=== PATIENT | female | born 1960 | race African-American/Black ===

== ENCOUNTER 2017-12-29 15:43 | Inpatient (IN) | payer OTHER ==
[2017-12-29] VITALS (8 sets, daily range): BP systolic 128–161; BP diastolic 73–100; PULSE 91–129; RESP 18–40; TEMP 97.7–100.2; O2SAT 91–98
[~2017-12-29] VITALS: Ht 160 cm; Wt 61.9 kg
[~2017-12-29 15:43] MED LIST: BLOOKIT5; CARV3.125 PO; ECOT81TA2 PO; GEOD80CA PO; LISI5 PO; REME45TA PO; VIST50CA PO
[2017-12-29] MEDS ORDERED: SODIUM CHLOR 0.9% 1000 ML INJ 1,000 ML IV SCH ×2 (16:33→18:44)
--- NOTE | 2017-12-29 16:39 | PD ---
HPI Chief Complaint: Respiratory Symptoms Time Seen by Provider: 16:24 Travel History International Travel<30 days: No Contact w/Intl Traveler<30days: No Traveled to known affect area: No History of Present Illness HPI 57-year-old female with history of asthma, schizophrenia, presents for evaluation of dyspnea and cough. Symptoms started 5 days ago. She reports dyspnea, pain underneath her breasts bilaterally which is worse when breathing and coughing. It is a sharp pain. The cough is dry. Her dyspnea is unrelieved with her asthma bronchodilator inhaler medication. She believes that she may have had a fever yesterday, she reports that her skin felt warm. She did not check her temperature. Denies abdominal pain, nausea or vomiting, diarrhea or constipation, recent travel, recent surgery. her primary care physician is Dr. Serrano. No other complaints. PFSH Past Medical History Arthritis: Yes Asthma: Yes Autoimmune Disease: No Bipolar Disorder: Yes Anxiety: Yes Depression: Yes Heart Rhythm Problems: No Cancer: No Cardiovascular Problems: No High Cholesterol: No Chemotherapy: No Chest Pain: Yes Congestive Heart Failure: No COPD: No Cerebrovascular Accident: Yes (FIVE YEARS AGO ) Diabetes: Yes Diminished Hearing: No Endocrine: No Gastrointestinal Disorders: Yes GERD: No Glaucoma: No Genitourinary: Yes (CYST RIGHT KIDNEY 2005) Headaches: Yes Hepatitis: Yes (HEP C) Hiatal Hernia: Yes Hypertension: No Immune Disorder: No Kidney Stones: No Musculoskeletal: Yes Neurologic: Yes Psychiatric: Yes Reproductive: No Respiratory: Yes Immunizations Current: Yes Migraines: No Myocardial Infarction: No Radiation Therapy: No Renal Failure: No Schizophrenia: Yes Seizures: No Sickle Cell Disease: Yes (SICKLE CELL TRAIT) Sleep Apnea: No Thyroid Disease: Yes (HAS A CYST ON GLAND IN NECK PT STATES IS THYROID 2005) Ulcer: Yes : 3 Para: 3 Tubal Ligation: Yes (1990) Past Surgical History Abdominal Surgery: Yes (ABDOMINAL HERNIA REPAIR 1993 X2) Appendectomy: No Cardiac Surgery: No Cholecystectomy: No Ear Surgery: No Endocrine Surgery: No Eye Surgery: No Genitourinary Surgery: No Gynecologic Surgery: Yes (TUBAL LIGATION 1990) Hysterectomy: Yes Oral Surgery: No Thoracic Surgery: No Other Surgery: Yes Social History Alcohol Use: No Tobacco Use: Yes (1 PPD) Substance Use: Yes (NEELIMAUNA) Allergies-Medications (Allergen,Severity, Reaction): Coded Allergies: thiabendazole (Verified Allergy, Severe, HIVES, 12/29/17) Reported Meds & Prescriptions Reported Meds & Active Scripts Active Active Prescriptions or Reported Medications Unobtainable Review of Systems Except as stated in HPI: all other systems reviewed are Neg Physical Exam Narrative GENERAL: Well-developed well-nourished female no acute distress. She is noted to be tachycardic with an oxygen saturation of 91% in triage. SKIN: Warm and dry. HEAD: Atraumatic. Normocephalic. EYES: Pupils equal and round. No scleral icterus. No injection or drainage. ENT: No nasal bleeding or discharge. Mucous membranes pink and moist. NECK: Trachea midline. No JVD. CARDIOVASCULAR: Regular rate and rhythm. No murmur appreciated. RESPIRATORY: No accessory muscle use. Diminished breath sounds bilaterally. GASTROINTESTINAL: Abdomen soft, non-tender, nondistended. Hepatic and splenic margins not palpable. MUSCULOSKELETAL: No obvious deformities. No edema. NEUROLOGICAL: Awake and alert. No obvious cranial nerve deficits. Motor grossly within normal limits. Normal speech. Data Data Last Documented VS Vital Signs Date Time Temp Pulse Resp B/P (MAP) Pulse Ox O2 Delivery O2 Flow Rate FiO2 12/29/17 16:43 40 96 Nasal Cannula 2.00 12/29/17 16:43 100.2 125 149/85 (106) Orders Orders Complete Blood Count With Diff (12/29/17 16:09) Basic Metabolic Panel (Bmp) (12/29/17 16:09) B-Type Natriuretic Peptide (12/29/17 16:09) Act Partial Throm Time (Ptt) (12/29/17 16:09) Prothrombin Time / Inr (Pt) (12/29/17 16:09) Magnesium (Mg) (12/29/17 16:09) Ckmb (Isoenzyme) Profile (12/29/17 16:09) Troponin I (12/29/17 16:09) Electrocardiogram (12/29/17 16:09) Chest, Pa & Lat (12/29/17 16:09) Albuterol-Ipratropium Neb (Duoneb Neb) (12/29/17 16:45) Methylprednisolone So Succ Inj (Solumedr (12/29/17 16:45) Sodium Chlor 0.9% 1000 Ml Inj (Ns 1000 M (12/29/17 16:33) Lactic Acid Sepsis Protocol (12/29/17 16:33) Influenzae A/B Antigen (12/29/17 16:33) Blood Culture (12/29/17 16:33) Acetaminophen (Tylenol) (12/29/17 17:15) D-Dimer (12/29/17 16:43) Ceftriaxone Inj (Rocephin Inj) (12/29/17 18:15) Azithromycin Inj (Zithromax Inj) (12/29/17 18:15) CKMB (12/29/17 16:43) CKMB% (12/29/17 16:43) Potassium Chloride (Kcl) (12/29/17 18:15) Sodium Chlor 0.9% 1000 Ml Inj (Ns 1000 M (12/29/17 18:44) Labs Laboratory Tests Test 12/29/17 16:43 12/29/17 16:45 White Blood Count 20.6 TH/MM3 Red Blood Count 3.94 MIL/MM3 Hemoglobin 11.4 GM/DL Hematocrit 33.3 % Mean Corpuscular Volume 84.5 FL Mean Corpuscular Hemoglobin 28.8 PG Mean Corpuscular Hemoglobin Concent 34.1 % Red Cell Distribution Width 17.9 % Platelet Count 245 TH/MM3 Mean Platelet Volume 8.2 FL Neutrophils (%) (Auto) 86.3 % Lymphocytes (%) (Auto) 6.0 % Monocytes (%) (Auto) 7.4 % Eosinophils (%) (Auto) 0.0 % Basophils (%) (Auto) 0.3 % Neutrophils # (Auto) 17.7 TH/MM3 Lymphocytes # (Auto) 1.2 TH/MM3 Monocytes # (Auto) 1.5 TH/MM3 Eosinophils # (Auto) 0.0 TH/MM3 Basophils # (Auto) 0.1 TH/MM3 CBC Comment DIFF FINAL Differential Comment Prothrombin Time 12.7 SEC Prothromb Time International Ratio 1.3 RATIO Activated Partial Thromboplast Time 28.9 SEC D-Dimer Quantitative (PE/DVT) 2.82 MG/L FEU Blood Urea Nitrogen 9 MG/DL Creatinine 0.74 MG/DL Random Glucose 114 MG/DL Calcium Level 8.6 MG/DL Magnesium Level 2.3 MG/DL Sodium Level 126 MEQ/L Potassium Level 3.1 MEQ/L Chloride Level 91 MEQ/L Carbon Dioxide Level 22.5 MEQ/L Anion Gap 13 MEQ/L Estimat Glomerular Filtration Rate 98 ML/MIN Total Creatine Kinase 455 U/L Creatine Kinase MB 2.9 NG/ML Creatine Kinase MB % 0.6 % Troponin I LESS THAN 0.02 NG/ML B-Type Natriuretic Peptide 57 PG/ML Lactic Acid Level 2.5 mmol/L MDM Medical Decision Making Medical Screen Exam Complete: Yes Emergency Medical Condition: Yes Medical Record Reviewed: Yes Differential Diagnosis Asthma exacerbation, pneumonia, spontaneous pneumothorax, pulmonary embolism, pleural effusion, CHF Narrative Course The patient was placed on ECG monitoring pulse oximetry. A 12-lead EKG was obtained. Lab work, chest x-ray have been ordered. The patient will be given IV fluids, duo nebs, Solu-Medrol. Initial vital signs revealed a heart rate of 129, pulse oximetry 91 as well as a normal temperature. Her temperature was rechecked and it was elevated 100.2 lab work is been reviewed. WBC is 20.6, lactic acid 2.5, sodium 126, potassium 3.1, examination and history are consistent with sepsis pneumonia. Initially a d-dimer was ordered and it is elevated however her clinical condition is consistent with pneumonia. Chest x-ray reveals CONCLUSION: 1. Patchy airspace consolidation in the lungs most characteristic of bronchopneumonia. Close followup recommended to insure clearing especially on the left side. Peribronchial thickening also present. The patient will be given additional IV fluids as well as Rocephin and azithromycin. She will be admitted. Sepsis Criteria SIRS Criteria (2 or more): Heart rate over 90, RR > 20 or PaCO2 < 32, WBC > 63858, < 4000 or > 10% bands Sepsis Criteria (SIRS+source): Infect source susp/known Severe Sepsis (+one): Lactate >2 Diagnosis Primary Impression: Sepsis Additional Impressions: Pneumonia Hyponatremia Hypokalemia Admitting Information Admitting Physician Requests: Admit Scripts Unable to Obtain Active Prescriptions or Reported Meds Cabrera Mcclellan Dec 29, 2017 16:38
[2017-12-29] MEDS ORDERED: methylPREDNISolone SOD SUCC 125 MG/2 ML VIAL IV PUSH ONE (16:45)
[2017-12-29] MEDS: RESP: ALBUTEROL 2.5 MG/IPRATROPIUM 0.5 MG NEB (SCH) INH ×2 (16:50→16:51)
[2017-12-29] MEDS ORDERED: ACETAMINOPHEN 325 MG TAB PO ONE (17:15)
[2017-12-29 17:38] LABS: LACTIC ACID SEPSIS PROTOCOL 2.5 mmol/L (0.4-2.0)
[2017-12-29 17:50] LABS: INTERNATIONAL NORMALIZED RATIO 1.3 RATIO; PROTHROMBIN TIME - PATIENT 12.7 SEC (9.8-11.6)
[2017-12-29 17:52] LABS: D-DIMER 2.82 MG/L FEU (0.00-0.50)
[2017-12-29 17:55] LABS: AUTOMATED NEUTROPHIL # 17.7 TH/MM3 (1.8-7.7); BASOPHIL # 0.1 TH/MM3 (0-0.2); BASOPHIL % 0.3 % (0.0-2.0); HEMATOCRIT 33.3 % (35.0-46.0); HEMOGLOBIN 11.4 GM/DL (11.6-15.3); LYMPHOCYTE # 1.2 TH/MM3 (1.0-4.8); MEAN CELL VOLUME 84.5 FL (80.0-100.0); MEAN CORPUSCULAR HEMOGLOBIN 28.8 PG (27.0-34.0); MEAN CORPUSCULAR HGB CONC 34.1 % (32.0-36.0); MEAN PLATELET VOLUME 8.2 FL (7.0-11.0); MONO % 7.4 % (0.0-8.0); MONOCYTE # 1.5 TH/MM3 (0-0.9); NEUT % 86.3 % (16.0-70.0); PLATELET COUNT 245 TH/MM3 (150-450); RED BLOOD COUNT 3.94 MIL/MM3 (4.00-5.30); RED CELL DISTRIBUTION WIDTH 17.9 % (11.6-17.2); WHITE BLOOD COUNT 20.6 TH/MM3 (4.0-11.0)
[2017-12-29 18:06] LABS: BICARBONATE 22.5 MEQ/L (21.0-32.0); BLOOD UREA NITROGEN 9 MG/DL (7-18); CALCIUM 8.6 MG/DL (8.5-10.1); CHLORIDE 91 MEQ/L (98-107); CREATININE 0.74 MG/DL (0.50-1.00); GLOMERULAR FILTRATION RATE 98 ML/MIN (>89); GLUCOSE,RANDOM 114 MG/DL (74-106); MAGNESIUM 2.3 MG/DL (1.5-2.5); SODIUM (NA) 126 MEQ/L (136-145)
[2017-12-29 18:11] LABS: TROPONIN I LESS THAN 0.02 NG/ML (0.02-0.05)
[2017-12-29] MEDS ORDERED: AZITHROMYCIN INJ 500 MG in SODIUM CHLOR 0.9% 250 ML INJ 250 ML IV ONE (18:15)
[2017-12-29] MEDS ORDERED: cefTRIAXone INJ 1,000 MG in SODIUM CHLORIDE 0.9% INJ 100 ML IV ONE (18:15)
[2017-12-29] MEDS ORDERED: POTASSIUM CHLORIDE 20 MEQ CONTROLLED RELEASE TAB PO ONE (18:15)
--- NOTE | 2017-12-29 18:42 | RADRPT ---
EXAM DATE/TIME: 12/29/2017 17:46 [facility] COMPARISON: No previous studies available for comparison. INDICATIONS : Short of breath and fever for 5-7 days. MEDICAL HISTORY : Diabetes mellitus type 2. Hepatitis C. Hypertension. SURGICAL HISTORY : Tubal ligation. Hysterectomy. Inguinal hernia repair. ENCOUNTER: Initial ACUITY: 4 - 6 days PAIN SCORE: 0/10 LOCATION: Bilateral chest FINDINGS: This TS disease in both lungs, worse on the left side with dense consolidation in the lateral left mi dlung. Given the history of fever findings are most characteristic of bronchopneumonia. Followup corinna mmended to insure clearing. No effusion. Heart size mildly enlarged. No pneumothorax. Peribronchial t hickening present. CONCLUSION: 1. Patchy airspace consolidation in the lungs most characteristic of bronchopneumonia. Close followup recommended to insure clearing especially on the left side. Peribronchial thickening also present. Fadi Graham MD on December 29, 2017 at 18:38 Board Certified Radiologist. This report was verified electronically.
--- NOTE | 2017-12-29 18:53 | PD ---
Data Data Last Documented VS Vital Signs Date Time Temp Pulse Resp B/P (MAP) Pulse Ox O2 Delivery O2 Flow Rate FiO2 12/29/17 16:43 40 96 Nasal Cannula 2.00 12/29/17 16:43 100.2 125 149/85 (106) Orders Orders Complete Blood Count With Diff (12/29/17 16:09) Basic Metabolic Panel (Bmp) (12/29/17 16:09) B-Type Natriuretic Peptide (12/29/17 16:09) Act Partial Throm Time (Ptt) (12/29/17 16:09) Prothrombin Time / Inr (Pt) (12/29/17 16:09) Magnesium (Mg) (12/29/17 16:09) Ckmb (Isoenzyme) Profile (12/29/17 16:09) Troponin I (12/29/17 16:09) Electrocardiogram (12/29/17 16:09) Chest, Pa & Lat (12/29/17 16:09) Albuterol-Ipratropium Neb (Duoneb Neb) (12/29/17 16:45) Methylprednisolone So Succ Inj (Solumedr (12/29/17 16:45) Sodium Chlor 0.9% 1000 Ml Inj (Ns 1000 M (12/29/17 16:33) Lactic Acid Sepsis Protocol (12/29/17 16:33) Influenzae A/B Antigen (12/29/17 16:33) Blood Culture (12/29/17 16:33) Acetaminophen (Tylenol) (12/29/17 17:15) D-Dimer (12/29/17 16:43) Ceftriaxone Inj (Rocephin Inj) (12/29/17 18:15) Azithromycin Inj (Zithromax Inj) (12/29/17 18:15) CKMB (12/29/17 16:43) CKMB% (12/29/17 16:43) Potassium Chloride (Kcl) (12/29/17 18:15) Sodium Chlor 0.9% 1000 Ml Inj (Ns 1000 M (12/29/17 18:44) Labs Laboratory Tests Test 12/29/17 16:43 12/29/17 16:45 White Blood Count 20.6 TH/MM3 Red Blood Count 3.94 MIL/MM3 Hemoglobin 11.4 GM/DL Hematocrit 33.3 % Mean Corpuscular Volume 84.5 FL Mean Corpuscular Hemoglobin 28.8 PG Mean Corpuscular Hemoglobin Concent 34.1 % Red Cell Distribution Width 17.9 % Platelet Count 245 TH/MM3 Mean Platelet Volume 8.2 FL Neutrophils (%) (Auto) 86.3 % Lymphocytes (%) (Auto) 6.0 % Monocytes (%) (Auto) 7.4 % Eosinophils (%) (Auto) 0.0 % Basophils (%) (Auto) 0.3 % Neutrophils # (Auto) 17.7 TH/MM3 Lymphocytes # (Auto) 1.2 TH/MM3 Monocytes # (Auto) 1.5 TH/MM3 Eosinophils # (Auto) 0.0 TH/MM3 Basophils # (Auto) 0.1 TH/MM3 CBC Comment DIFF FINAL Differential Comment Prothrombin Time 12.7 SEC Prothromb Time International Ratio 1.3 RATIO Activated Partial Thromboplast Time 28.9 SEC D-Dimer Quantitative (PE/DVT) 2.82 MG/L FEU Blood Urea Nitrogen 9 MG/DL Creatinine 0.74 MG/DL Random Glucose 114 MG/DL Calcium Level 8.6 MG/DL Magnesium Level 2.3 MG/DL Sodium Level 126 MEQ/L Potassium Level 3.1 MEQ/L Chloride Level 91 MEQ/L Carbon Dioxide Level 22.5 MEQ/L Anion Gap 13 MEQ/L Estimat Glomerular Filtration Rate 98 ML/MIN Total Creatine Kinase 455 U/L Creatine Kinase MB 2.9 NG/ML Creatine Kinase MB % 0.6 % Troponin I LESS THAN 0.02 NG/ML B-Type Natriuretic Peptide 57 PG/ML Lactic Acid Level 2.5 mmol/L MDM Supervised Visit with PAIGE: Yes Narrative Course I reviewed the case in detail EDDIE Rees. I have evaluated the patient. I reviewed the workup in entirety. Patient has consolidation on chest x-ray as well as fever and dyspnea and wheezing. Cabrera tried to cancel the d-dimer when the clinical picture was ruling out PE but the lab ran it anyways. I do not feel he needs to pursue PE diagnosis given the situation here. Patient received IV Rocephin and Zithromax. He is discussing with the hospitalist for admission Diagnosis Primary Impression: Sepsis Additional Impressions: Hyponatremia Pneumonia Hypokalemia Admitting Information Admitting Physician Requests: Admit Scripts Unable to Obtain Active Prescriptions or Reported Meds Leobardo Greer MD Dec 29, 2017 18:53
[2017-12-29] MEDS ORDERED: NALOXONE HCL 0.4 MG/ML AMP IV PUSH PRN (19:00)
[2017-12-29] MEDS ORDERED: SODIUM CHLORIDE 0.9% FLUSH 10 ML FLUSH IV FLUSH PRN (19:00)
[2017-12-29] MEDS ORDERED: GEOD80CA PO (19:30)
[2017-12-29] MEDS ORDERED: VIST50CA PO (19:30)
[2017-12-29] MEDS ORDERED: ASPI-516 CHEW (19:30)
[2017-12-29] MEDS ORDERED: REME45TA PO (19:30)
[2017-12-29] MEDS ORDERED: RESP: ALBUTEROL 2.5 MG/IPRATROPIUM 0.5 MG NEB (PRN) NEB (20:15)
[2017-12-29] MEDS: SODIUM CHLORIDE 0.9% FLUSH 10 ML FLUSH IV FLUSH SCH (20:23)
[2017-12-29] MEDS ORDERED: FLUMAZENIL 0.5 MG/5 ML VIAL IV PUSH PRN (20:30)
[2017-12-29] MEDS ORDERED: LORazepam 1 MG TAB PO PRN (20:30)
[2017-12-29] MEDS ORDERED: HALOPERIDOL LACTATE 5 MG/ML AMP IM PRN (20:30)
[2017-12-29] MEDS ORDERED: LORazepam 2 MG/ML VIAL IV PUSH PRN ×4 (20:30)
[2017-12-29] MEDS ORDERED: LORazepam 2 MG TAB PO PRN (20:30)
--- NOTE | 2017-12-29 20:37 | HHI.HP ---
[facility]Staff Admission Diagnosis Sepsis, pneumonia Diagnoses: Travel History International Travel<30 Days: No Contact w/Intl Traveler <30 Da: No Traveled to Known Affected Are: No History of Present Illness 57-year-old female with past medical history significant for asthma/COPD presents to the emergency department for evaluation of chest pain/shortness of breath. The patient reports her shortness of breast or approximately 4-5 days ago with a left-sided pleuritic chest pain that was worse with inspiration. She states her shortness of breath and chest pain acutely worsened this morning where her chest pain was now on the right side but remained worse with inspiration. She states that her shortness of breath is worse with exertion. She endorses a nonproductive cough. Positive fever/chills. Denies any nausea/ vomiting/diarrhea. No abdominal pain. No lateralizing signs/symptoms. Review of Systems Except as stated in HPI: all other systems reviewed are Neg Past Family Social History Past Medical History Asthma/COPD Unspecified psychiatric disorder Past Surgical History Hysterectomy Bilateral tubal ligation Reported Medications Reported Meds & Active Scripts Active Reported Aspirin 81 Mg Chew 81 Mg CHEW DAILY Vistaril (Hydroxyzine Pamoate) 50 Mg Cap 50 Mg PO HS Geodon (Ziprasidone) 80 Mg Cap 80 Mg PO HS Remeron (Mirtazapine) 45 Mg Tab 45 Mg PO HS Allergies: Coded Allergies: thiabendazole (Verified Allergy, Severe, HIVES, 12/29/17) Family History Negative for CAD/DM Social History Smokes proximally one pack per day. Drinks proximally 4 beers per day. Positive marijuana. Remote history of cocaine abuse. No other illicit drugs at this time. Physical Exam Vital Signs Vital Signs Date Time Temp Pulse Resp B/P (MAP) Pulse Ox O2 Delivery O2 Flow Rate FiO2 12/29/17 19:24 106 24 128/80 (96) 97 Nasal Cannula 2.00 12/29/17 16:43 40 96 Nasal Cannula 2.00 12/29/17 16:43 100.2 125 40 149/85 (106) 96 Nasal Cannula 2.00 12/29/17 16:07 98.8 129 24 158/77 (104) 91 Physical Exam GENERAL: female sitting up in bed, tachypneic SKIN: No rashes, ecchymoses or lesions. Cool and dry. HEAD: Atraumatic. Normocephalic. No temporal or scalp tenderness. EYES: Pupils equal round and reactive. Extraocular motions intact. No scleral icterus. No injection or drainage. ENT: Nose without bleeding, purulent drainage or septal hematoma. Throat without erythema, tonsillar hypertrophy or exudate. Uvula midline. Airway patent. NECK: Trachea midline. No JVD or lymphadenopathy. Supple, nontender, no meningeal signs. CARDIOVASCULAR: Regular rate and rhythm without murmurs, gallops, or rubs. RESPIRATORY: Poor air movement bilaterally. Bilateral crackles. No wheezes/ rhonchi. GASTROINTESTINAL: Abdomen soft, non-tender, nondistended. No hepato-splenomegaly , or palpable masses. No guarding. MUSCULOSKELETAL: Extremities without clubbing, cyanosis, or edema. No joint tenderness, effusion, or edema noted. No calf tenderness. NEUROLOGICAL: Awake and alert. Cranial nerves II through XII intact. Motor and sensory grossly within normal limits. Normal speech. Laboratory Laboratory Tests Test 12/29/17 16:43 12/29/17 16:45 White Blood Count 20.6 Red Blood Count 3.94 Hemoglobin 11.4 Hematocrit 33.3 Mean Corpuscular Volume 84.5 Mean Corpuscular Hemoglobin 28.8 Mean Corpuscular Hemoglobin Concent 34.1 Red Cell Distribution Width 17.9 Platelet Count 245 Mean Platelet Volume 8.2 Neutrophils (%) (Auto) 86.3 Lymphocytes (%) (Auto) 6.0 Monocytes (%) (Auto) 7.4 Eosinophils (%) (Auto) 0.0 Basophils (%) (Auto) 0.3 Neutrophils # (Auto) 17.7 Lymphocytes # (Auto) 1.2 Monocytes # (Auto) 1.5 Eosinophils # (Auto) 0.0 Basophils # (Auto) 0.1 CBC Comment DIFF FINAL Differential Comment Prothrombin Time 12.7 Prothromb Time International Ratio 1.3 Activated Partial Thromboplast Time 28.9 D-Dimer Quantitative (PE/DVT) 2.82 Blood Urea Nitrogen 9 Creatinine 0.74 Random Glucose 114 Calcium Level 8.6 Magnesium Level 2.3 Sodium Level 126 Potassium Level 3.1 Chloride Level 91 Carbon Dioxide Level 22.5 Anion Gap 13 Estimat Glomerular Filtration Rate 98 Total Creatine Kinase 455 Creatine Kinase MB 2.9 Creatine Kinase MB % 0.6 Troponin I LESS THAN 0.02 B-Type Natriuretic Peptide 57 Lactic Acid Level 2.5 Date/Time Source Procedure Growth Status 12/29/17 16:45 Blood Peripheral Aerobic Blood Culture Pending Received 12/29/17 16:45 Blood Peripheral Anaerobic Blood Culture Pending Received 12/29/17 16:47 Nasal Aspirate Influenza Types A,B Antigen (MOOK) - Final NEGATIVE FOR FLU A AND B ANTIGEN.... Complete Result Diagram: 12/29/17 1643 12/29/17 1643 Caprini VTE Risk Assessment Caprini VTE Risk Assessment: No/Low Risk (score <= 1) Caprini Risk Assessment Model Point Value = 1 Point Value = 2 Point Value = 3 Point Value = 5 Age 41-60 Minor surgery BMI > 25 kg/m2 Swollen legs Varicose veins or History of unexplained or recurrent spontaneous Oral contraceptives or hormone replacement Sepsis (< 1 month) Serious lung disease, including pneumonia (< 1 month) Abnormal pulmonary function Acute myocardial infarction Congestive heart failure (< 1 month) History of inflammatory bowel disease Medical patient at bed rest Age 61-74 Arthroscopic surgery Major open surgery (> 45 min) Laparoscopic surgery (> 45 min) Malignancy Confined to bed (> 72 hours) Immobilizing plaster cast Central venous access Age >= 75 History of VTE Family history of VTE Factor V Leiden Prothrombin [id number] Lupus anticoagulant Anticardiolipin antibodies Elevated serum homocysteine Heparin-induced thrombocytopenia Other congenital or acquired thrombophilia Stroke (< 1 month) Elective arthroplasty Hip, pelvis, or leg fracture Acute spinal cord injury (< 1 month) Prophylaxis Regimen Total Risk Factor Score Risk Level Prophylaxis Regimen 0-1 Low Early ambulation 2 Moderate Order ONE of the following: *Sequential Compression Device (SCD) *Heparin 5000 units SQ BID 3-4 Higher Order ONE of the following medications: *Heparin 5000 units SQ TID *Enoxaparin/Lovenox 40 mg SQ daily (WT < 150 kg, CrCl > 30 mL/min) *Enoxaparin/Lovenox 30 mg SQ daily (WT < 150 kg, CrCl > 10-29 mL/min) *Enoxaparin/Lovenox 30 mg SQ BID (WT < 150 kg, CrCl > 30 mL/min) AND/OR *Sequential Compression Device (SCD) 5 or more Highest Order ONE of the following medications: *Heparin 5000 units SQ TID (Preferred with Epidurals) *Enoxaparin/Lovenox 40 mg SQ daily (WT < 150 kg, CrCl > 30 mL/min) *Enoxaparin/Lovenox 30 mg SQ daily (WT < 150 kg, CrCl > 10-29 mL/min) *Enoxaparin/Lovenox 30 mg SQ BID (WT < 150 kg, CrCl > 30 mL/min) AND *Sequential Compression Device (SCD) Assessment and Plan Assessment and Plan Assessment/plan: 1. Pneumonia/sepsis/COPD Patient with leukocytosis, elevated lactic acid, fever, tachycardia and tachypnea Chest x-ray significant for patchy airspace consolidation in the lungs, personally reviewed Azithromycin/Rocephin DuoNebs Supplemental oxygen as needed Monitor for signs of shock 2. Unspecified psychiatric disorder Continue home Geodon/Remeron 3. Alcohol abuse Thiamine/folate/multivitamins CIWA protocol Monitor for signs of withdrawal 4. Hypokalemia/hyponatremia Fluid restriction Status post by mouth repletion of potassium Monitor BMP FEN Heart healthy diet with fluid restriction Electrolytes: As above Ambulation Physician Certification 2 Midnight Certification Type: Admission for Inpatient Services Order for Inpatient Services The services are ordered in accordance with Medicare regulations or non- Medicare payer requirements, as applicable. In the case of services not specified as inpatient-only, they are appropriately provided as inpatient services in accordance with the 2-midnight benchmark. Estimated LOS (days): 2 2 days is the estimated time the patient will need to remain in the hospital, assuming treatment plan goals are met and no additional complications. Post-Hospital Plan: Not yet determined Jessica Valente MD Dec 29, 2017 20:37
[2017-12-29] MEDS: MIRTAZAPINE 15 MG TAB PO SCH (22:31)
[2017-12-29] MEDS: ZIPRASIDONE HCL 80 MG CAP PO SCH (22:35)
[2017-12-30] VITALS (13 sets, daily range): BP systolic 115–144; BP diastolic 22–83; PULSE 64–103; RESP 17–22; TEMP 96.1–97.9; O2SAT 96–99
--- NOTE | 2017-12-30 08:08 | EKG ---
Date Performed: 12/29/2017 Time Performed: 16:37:01 PTAGE: 57 years EKG: SINUS TACHYCARDIA WITH FIRST DEGREE AV BLOCK ABNORMAL ECG PREVIOUS TRACING : 04/05/2016 20.51 DOCTOR: Flynn Atkins Interpretating Date/Time 12/30/2017 08:07:44
[2017-12-30] MEDS: AZITHROMYCIN 250 MG TAB PO SCH (08:35)
[2017-12-30] MEDS: THIAMINE HCL 100 MG TAB PO SCH (08:35)
[2017-12-30] MEDS: SODIUM CHLORIDE 0.9% FLUSH 10 ML FLUSH IV FLUSH SCH ×2 (08:35→22:33)
[2017-12-30] MEDS: FOLIC ACID 1 MG TAB PO SCH (08:35)
[2017-12-30] MEDS: ASPIRIN 81 MG CHEW TAB CHEW SCH (08:35)
[2017-12-30] MEDS: MULTIVITAMINS/MINERALS THERAPEUTIC TAB PO SCH (08:35)
[2017-12-30] MEDS ORDERED: methylPREDNISolone SOD SUCC 40 MG/1 ML VIAL IV PUSH SCH (09:00)
[2017-12-30 09:51] LABS: AUTOMATED NEUTROPHIL # 12.1 TH/MM3 (1.8-7.7); BASOPHIL % 0.2 % (0.0-2.0); EOSINOPHIL # 0.1 TH/MM3 (0-0.4); EOSINOPHIL % 0.6 % (0.0-4.0); HEMOGLOBIN 10.4 GM/DL (11.6-15.3); LYMPH % 7.4 % (9.0-44.0); MEAN CELL VOLUME 86.8 FL (80.0-100.0); MEAN CORPUSCULAR HEMOGLOBIN 29.2 PG (27.0-34.0); MEAN CORPUSCULAR HGB CONC 33.6 % (32.0-36.0); MEAN PLATELET VOLUME 8.2 FL (7.0-11.0); MONO % 4.9 % (0.0-8.0); MONOCYTE # 0.7 TH/MM3 (0-0.9); NEUT % 86.9 % (16.0-70.0); PLATELET COUNT 209 TH/MM3 (150-450); RED BLOOD COUNT 3.57 MIL/MM3 (4.00-5.30); RED CELL DISTRIBUTION WIDTH 18.1 % (11.6-17.2); WHITE BLOOD COUNT 13.9 TH/MM3 (4.0-11.0)
[2017-12-30 10:07] LABS: BICARBONATE 26.2 MEQ/L (21.0-32.0); CALCIUM 8.5 MG/DL (8.5-10.1); CREATININE 0.61 MG/DL (0.50-1.00)
[2017-12-30] MEDS: ENOXAPARIN SODIUM 30 MG/0.3 ML SYRINGE SQ SCH (15:21)
--- NOTE | 2017-12-30 16:52 | HHI.PR ---
Subjective Remarks cough- dry. no complains of chest pain or shortness of breath- "feeling better" states heavy smoker + alcohol use no history of recent travel last 6 months no calf pain Objective Vitals Vital Signs Date Time Temp Pulse Resp B/P (MAP) Pulse Ox O2 Delivery O2 Flow Rate FiO2 12/30/17 12:06 97.6 74 22 136/78 (97) 97 12/30/17 12:00 64 12/30/17 09:36 96 Nasal Cannula 3.00 12/30/17 08:06 97.5 72 22 140/77 (98) 98 12/30/17 08:00 96 Nasal Cannula 3.00 12/30/17 07:49 81 12/30/17 04:10 97.4 82 18 144/83 (103) 99 12/30/17 04:00 82 12/30/17 00:00 103 12/29/17 23:59 96 Nasal Cannula 3.00 12/29/17 23:40 97.7 96 18 136/73 (94) 97 12/29/17 22:00 96 12/29/17 22:00 Nasal Cannula 3.00 12/29/17 21:28 12/29/17 21:00 98 22 161/100 (120) 98 Nasal Cannula 2.00 12/29/17 20:35 98.0 91 18 129/75 (93) 93 12/29/17 19:24 106 24 128/80 (96) 97 Nasal Cannula 2.00 I/O 12/29/17 12/29/17 12/29/17 12/30/17 12/30/17 12/30/17 07:00 15:00 23:00 07:00 15:00 23:00 Intake Total 2350 ml 360 ml Output Total 1000 ml Balance 2350 ml -640 ml Intake Oral 360 ml IV Total 2350 ml Output Urine Total 1000 ml # Bowel Movements 0 Result Diagram: 12/30/17 0734 12/30/17 0734 Imaging Last Impressions Chest X-Ray 12/29/17 1609 Signed Impressions: Service Date/Time: Friday, December 29, 2017 17:46 - CONCLUSION: 1. Patchy airspace consolidation in the lungs most characteristic of bronchopneumonia. Close followup recommended to insure clearing especially on the left side. Peribronchial thickening also present. Fadi Graham MD Objective Remarks awake and alert,. on 02 NC anicteric throat no exudates lungs- with dry rales bilateral bases, no wheezes or rhonchi regular rhythm abdomen soft, nontender extremities no edema, no calf tenderness neuro exam- non focal A/P Assessment and Plan 57 years old female 1. Pneumonia/sepsis/COPD Patient with leukocytosis, elevated lactic acid, fever, tachycardia and tachypnea - T down, WBC trending down Chest x-ray significant for patchy airspace consolidation in the lungs Azithromycin/Rocephin DuoNebs Supplemental oxygen as needed ff cultures counselled on smoking cessation check PFTs 2. Unspecified psychiatric disorder- patient calm and cooperative Continue home Geodon/Remeron 3. Alcohol abuse- patient states drink 2-4 packs per day Thiamine/folate/multivitamins CIWA protocol. patient motivated with cessation Monitor for signs of withdrawal 4. Hypokalemia/hyponatremia- improved Fluid restriction Status post by mouth repletion of potassium Monitor CMP 5. History of DM type 2- per patient as OP takes was on Glyburide daily - does not recall the dose monitor BS tid and hs. check a1C in am sliding scale with insulin for now change to ADA diet expect to be elevated with IV steroids FEN Heart healthy diet with fluid restriction/ADA diet Lovenox/PPI for prophylaxis encourage increase ambulation PT eval in am Ginny Earl MD Dec 30, 2017 16:52
[2017-12-30] MEDS ORDERED: GLUCAGON 1 MG/ML VIAL OTHER PRN (17:30)
[2017-12-30] MEDS ORDERED: DEXTROSE 50% IN WATER 50 ML VIAL(D50) IV PUSH PRN (17:30)
[2017-12-30] MEDS ORDERED: cefTRIAXone INJ 1,000 MG in SODIUM CHLORIDE 0.9% INJ 100 ML IV SCH (18:00)
[2017-12-30] MEDS: MIRTAZAPINE 15 MG TAB PO SCH (22:31)
[2017-12-30] MEDS: ZIPRASIDONE HCL 80 MG CAP PO SCH (22:31)
[2017-12-30] MEDS: FAMOTIDINE 20 MG TAB PO SCH (22:31)
[2017-12-30] MEDS: INSULIN NovoLIN REGULAR SUPPLEMENTAL SCALE SQ SCH (22:32)
[2017-12-30] MEDS: methylPREDNISolone SOD SUCC 40 MG/1 ML VIAL IV PUSH SCH (22:32)
[2017-12-31] VITALS (11 sets, daily range): BP systolic 128–142; BP diastolic 60–76; PULSE 69–87; RESP 16–18; TEMP 97.4–98.8; O2SAT 95–100
[2017-12-31] MEDS: INSULIN NovoLIN REGULAR SUPPLEMENTAL SCALE SQ SCH ×3 (08:00→17:02)
[2017-12-31] MEDS: FOLIC ACID 1 MG TAB PO SCH (08:48)
[2017-12-31] MEDS: MULTIVITAMINS/MINERALS THERAPEUTIC TAB PO SCH (08:48)
[2017-12-31] MEDS: THIAMINE HCL 100 MG TAB PO SCH (08:48)
[2017-12-31] MEDS: AZITHROMYCIN 250 MG TAB PO SCH (08:48)
[2017-12-31] MEDS: SODIUM CHLORIDE 0.9% FLUSH 10 ML FLUSH IV FLUSH SCH ×2 (08:49→20:27)
[2017-12-31] MEDS: FAMOTIDINE 20 MG TAB PO SCH ×2 (08:49→20:27)
[2017-12-31] MEDS: ASPIRIN 81 MG CHEW TAB CHEW SCH (08:49)
[2017-12-31] MEDS: methylPREDNISolone SOD SUCC 40 MG/1 ML VIAL IV PUSH SCH (08:49)
[2017-12-31 09:13] LABS: ALBUMIN 1.6 GM/DL (3.4-5.0); BICARBONATE 25.6 MEQ/L (21.0-32.0); BLOOD UREA NITROGEN 15 MG/DL (7-18); CHLORIDE 108 MEQ/L (98-107); SODIUM (NA) 140 MEQ/L (136-145)
[2017-12-31 09:21] LABS: ALKALINE PHOSPHATASE 103 U/L (45-117); ALT (GPT) 166 U/L (10-53); AST (GOT) 458 U/L (15-37); CALCIUM 8.6 MG/DL (8.5-10.1); CREATININE 0.65 MG/DL (0.50-1.00); GLOMERULAR FILTRATION RATE 114 ML/MIN (>89); GLUCOSE,RANDOM 135 MG/DL (74-106); TOTAL BILIRUBIN ADULT 0.5 MG/DL (0.2-1.0); TOTAL PROTEIN 8.5 GM/DL (6.4-8.2)
[2017-12-31] MEDS: ENOXAPARIN SODIUM 30 MG/0.3 ML SYRINGE SQ SCH (13:36)
--- NOTE | 2017-12-31 15:08 | HHI.PR ---
Subjective Remarks Follow up for sepsis, pneumonia. Patient is currently doing well. Currently on nasal cannula 2L of O2. Sitting at the side of the bed. Family member at bedside. No fever, chills. Overall feels better. Objective Vitals Vital Signs Date Time Temp Pulse Resp B/P (MAP) Pulse Ox O2 Delivery O2 Flow Rate FiO2 12/31/17 12:00 Nasal Cannula 3.00 12/31/17 11:47 84 12/31/17 08:00 97.4 83 16 137/65 (89) 96 12/31/17 08:00 Nasal Cannula 3.00 12/31/17 07:54 73 12/31/17 04:00 98.3 76 16 142/76 (98) 100 12/31/17 04:00 82 12/31/17 04:00 100 Nasal Cannula 3.00 12/31/17 00:00 97.8 69 18 137/68 (91) 100 12/31/17 00:00 100 Nasal Cannula 3.00 12/30/17 23:59 95 12/30/17 20:10 78 12/30/17 20:00 97.9 71 17 119/70 (86) 97 12/30/17 19:00 97 Nasal Cannula 3.00 12/30/17 16:06 96.1 72 20 133/77 (95) 97 12/30/17 15:53 72 I/O 12/30/17 12/30/17 12/30/17 12/31/17 12/31/17 12/31/17 06:59 14:59 22:59 06:59 14:59 22:59 Intake Total 360 ml 460 ml Output Total 1000 ml 900 ml Balance -640 ml -440 ml Intake Oral 360 ml 460 ml Output Urine Total 1000 ml 900 ml # Bowel Movements 0 0 Result Diagram: 12/30/17 0734 12/31/17 0815 Imaging Last Impressions Chest X-Ray 12/29/17 1609 Signed Impressions: Service Date/Time: Friday, December 29, 2017 17:46 - CONCLUSION: 1. Patchy airspace consolidation in the lungs most characteristic of bronchopneumonia. Close followup recommended to insure clearing especially on the left side. Peribronchial thickening also present. Fadi Graham MD Objective Remarks GENERAL: Alert, NAD. SKIN: Warm and dry. HEAD: Normocephalic. EYES: No scleral icterus. No injection or drainage. NECK: Supple, trachea midline. No JVD or lymphadenopathy. CARDIOVASCULAR: Regular rate and rhythm without murmurs, gallops, or rubs. RESPIRATORY: Moderate air entry, diminished breath sounds bibasilar. No accessory muscle use. GASTROINTESTINAL: Abdomen soft, non-tender, nondistended. MUSCULOSKELETAL: No cyanosis, or edema. BACK: Nontender without obvious deformity. No CVA tenderness. Procedures None. A/P Problem List: (1) Sepsis ICD Code: A41.9 - Sepsis, unspecified organism Status: Acute (2) Pneumonia ICD Code: J18.9 - Pneumonia, unspecified organism Status: Acute Assessment and Plan 57-year-old female with past medical history significant for asthma/COPD presents to the emergency department for evaluation of chest pain/shortness of breath on 12/29/2017. The patient reports her shortness of breast or approximately 4-5 days prior to admission with a left-sided pleuritic chest pain that was worse with inspiration. Sepsis (HR 129, RR 24, infection - pneumonia). Community acquired pneumonia COPD exacerbation Will d/c Azithromycin and Ceftriaxone and start patient on PO Levaquin. DuoNeb PRN, Prednisone 20mg BID. Supplemental O2 to keep O2 sat > 90%. Wean off as much as possible. Walk test to see if she needs home O2 Hyponatremia Hypokalemia Na, K are 126, 3.1 respectively. Improved to 140 and 3.6. Hyperglycemia HbA1c 5.2. Home meds do not include any diabetic meds Hyperglycemia is likely due to steroid. Will continue sliding scale insulin with Aspart. D/C Novolin-R sliding scale. If BG is not well controlled, we may need to add pre-meal and also long acting insulin. Goal 140-180. Alcohol abuse - continue CIWA protocol, Folic acid and Thiamine. Full code. Nealx. Shannon Richard DO Dec 31, 2017 15:08
[2017-12-31 17:02] LABS: HEMOGLOBIN A1C 5.2 % (4.3-6.0)
[2017-12-31] MEDS: LEVOFLOXACIN 750 MG TAB PO SCH (17:02)
[2017-12-31] MEDS ORDERED: DEXTROSE 50% IN WATER 50 ML VIAL(D50) IV PUSH PRN (19:30)
[2017-12-31] MEDS ORDERED: GLUCAGON 1 MG/ML VIAL OTHER PRN (19:30)
[2017-12-31] MEDS: MIRTAZAPINE 15 MG TAB PO SCH (20:27)
[2017-12-31] MEDS: predniSONE 20 MG TAB PO SCH (20:27)
[2017-12-31] MEDS: ZIPRASIDONE HCL 80 MG CAP PO SCH (20:27)
[2017-12-31] MEDS: INSULIN ASPART SUPPLEMENTAL SCALE SQ SCH (22:50)
[2018-01-01] VITALS (7 sets, daily range): BP systolic 138–149; BP diastolic 67–92; PULSE 61–88; RESP 16–19; TEMP 97.4–98; O2SAT 92–97
[2018-01-01] MEDS: INSULIN ASPART SUPPLEMENTAL SCALE SQ SCH ×2 (08:00→12:00)
[2018-01-01] MEDS: SODIUM CHLORIDE 0.9% FLUSH 10 ML FLUSH IV FLUSH SCH (09:00)
[2018-01-01] MEDS: predniSONE 20 MG TAB PO SCH (10:17)
[2018-01-01] MEDS: THIAMINE HCL 100 MG TAB PO SCH (10:17)
[2018-01-01] MEDS: LEVOFLOXACIN 750 MG TAB PO SCH (10:17)
[2018-01-01] MEDS: FAMOTIDINE 20 MG TAB PO SCH (10:17)
[2018-01-01] MEDS: MULTIVITAMINS/MINERALS THERAPEUTIC TAB PO SCH (10:17)
[2018-01-01] MEDS: ASPIRIN 81 MG CHEW TAB CHEW SCH (10:17)
[2018-01-01] MEDS: FOLIC ACID 1 MG TAB PO SCH (10:18)
[2018-01-01] MEDS: ENOXAPARIN SODIUM 30 MG/0.3 ML SYRINGE SQ SCH (14:45)
--- NOTE | 2018-01-01 15:04 | HHI.FF ---
Face to Face Verification Diagnosis: (1) Respiratory failure (2) Hypoxia (3) Pneumonia (4) Sepsis Physical Therapy Order: Evaluate and Treat, Improve ambulation, Strength and gait training Home Health Nursing Order: Signs/symptoms of disease process Oxygen administration education I have seen patient Hilaria Powell on 01/01/18. My clinical findings support the need for the requested home health care services because: Ltd mobility - disease progression Patient has SOB Limited ability to care for self High risk of falls Infection w/ risk of complications I certify that my clinical findings support that this patient is homebound because: Hx COPD- exertion dyspnea/weakness Unsteady gait/balance Unsafe to leave home unassisted Unable to use public transportation Good Ram MD Jan 01, 2018 15:04
[2018-01-01] MEDS ORDERED: LEVA750T9 PO (15:16)
[2018-01-01] MEDS ORDERED: PRED20 PO (15:16)
[2018-01-01] MEDS ORDERED: LACTTAB8 PO (15:16)
[2018-01-01] MEDS ORDERED: OXYGENDME NAS.CANULA (15:16)
[2018-01-01] MEDS ORDERED: WALKER/ADULT/FO1 MIS (15:16)
--- NOTE | 2018-01-01 15:18 | HHI.DS ---
Discharge Summary Admission Date Dec 29, 2017 at 19:01 Discharge Date: Jan 01, 2018 Admitting Diagnosis Sepsis, pneumonia (1) Sepsis ICD Code: A41.9 - Sepsis, unspecified organism Diagnosis: Principal Status: Acute (2) Pneumonia ICD Code: J18.9 - Pneumonia, unspecified organism Diagnosis: Principal Status: Acute Procedures None. Brief History - From Admission 57-year-old female with past medical history significant for asthma/COPD presents to the emergency department for evaluation of chest pain/shortness of breath. The patient reports her shortness of breast or approximately 4-5 days ago with a left-sided pleuritic chest pain that was worse with inspiration. She states her shortness of breath and chest pain acutely worsened this morning where her chest pain was now on the right side but remained worse with inspiration. She states that her shortness of breath is worse with exertion. She endorses a nonproductive cough. Positive fever/chills. Denies any nausea/ vomiting/diarrhea. No abdominal pain. No lateralizing signs/symptoms. CBC/BMP: 12/30/17 0734 12/31/17 0815 Significant Findings Laboratory Tests Test 12/29/17 16:43 12/29/17 16:45 12/29/17 20:18 12/30/17 07:34 White Blood Count 20.6 TH/MM3 (4.0-11.0) 13.9 TH/MM3 (4.0-11.0) Red Blood Count 3.94 MIL/MM3 (4.00-5.30) 3.57 MIL/MM3 (4.00-5.30) Hemoglobin 11.4 GM/DL (11.6-15.3) 10.4 GM/DL (11.6-15.3) Hematocrit 33.3 % (35.0-46.0) 31.0 % (35.0-46.0) Red Cell Distribution Width 17.9 % (11.6-17.2) 18.1 % (11.6-17.2) Neutrophils (%) (Auto) 86.3 % (16.0-70.0) 86.9 % (16.0-70.0) Lymphocytes (%) (Auto) 6.0 % (9.0-44.0) 7.4 % (9.0-44.0) Neutrophils # (Auto) 17.7 TH/MM3 (1.8-7.7) 12.1 TH/MM3 (1.8-7.7) Monocytes # (Auto) 1.5 TH/MM3 (0-0.9) Prothrombin Time 12.7 SEC (9.8-11.6) D-Dimer Quantitative (PE/DVT) 2.82 MG/L FEU (0.00-0.50) Random Glucose 114 MG/DL (74-106) 193 MG/DL (74-106) Sodium Level 126 MEQ/L (136-145) Potassium Level 3.1 MEQ/L (3.5-5.1) Chloride Level 91 MEQ/L (98-107) 109 MEQ/L (98-107) Total Creatine Kinase 455 U/L (26-192) Troponin I LESS THAN 0.02 NG/ML Lactic Acid Level 2.5 mmol/L (0.4-2.0) Test 12/31/17 08:15 Random Glucose 135 MG/DL (74-106) Total Protein 8.5 GM/DL (6.4-8.2) Albumin 1.6 GM/DL (3.4-5.0) Aspartate Amino Transf (AST/SGOT) 458 U/L (15-37) Alanine Aminotransferase (ALT/SGPT) 166 U/L (10-53) Chloride Level 108 MEQ/L (98-107) PE at Discharge GENERAL: Alert, NAD. SKIN: Warm and dry. HEAD: Normocephalic. EYES: No scleral icterus. No injection or drainage. NECK: Supple, trachea midline. No JVD or lymphadenopathy. CARDIOVASCULAR: Regular rate and rhythm without murmurs, gallops, or rubs. RESPIRATORY: Moderate air entry, diminished breath sounds bibasilar. No accessory muscle use. GASTROINTESTINAL: Abdomen soft, non-tender, nondistended. MUSCULOSKELETAL: No cyanosis, or edema. BACK: Nontender without obvious deformity. No CVA tenderness. Hospital Course Mrs. Murray is a 7-year-old female. She is admitted secondary to sepsis with pneumonia. Hypoxia remained. However, she is ambulating and this is improving to be stable enough to discharge with home PT. Hypoxia remains and she'll need to discharge with home O2 in order to return to home at this point. Medically stable for return to home with oxygen and PT at home. Continue antibiotic therapy Zosyn below. Pt Condition on Discharge: Stable Discharge Disposition: Disch w/ Home Health Serv Discharge Time: <= 30 minutes Discharge Instructions DIET: Follow Instructions for: As Tolerated, No Restrictions Activities you can perform: Regular-No Restrictions Follow up Referrals: PCP Follow-up - 2 Weeks New Medications: Lactobacillus Acidophilus (Lactobacillus Acidophilus) 1 Billion Cell Tab 1 TAB PO TIDAC for Nutritional Supplement, #30 TAB 0 Refills Oxygen (O2) (Oxygen (O2)) Device LITER YARELIS.CANULA CONTINUOUS for Prevent Hypoxemia, #2 Oxygen Concentrator Portable Gaseous 2 L/min via Nasal Canula Continuous For 99 months Walker/Adult/Folding (Walker/Adult/Folding) 1 Mis Mis EA .XX DIRECTED, #1 0 Refills Levofloxacin (Levaquin) 750 Mg Tablet 750 MG PO DAILY for Infection, #7 TAB Prednisone (Prednisone) 20 Mg Tab 20 MG PO BID for Inflammation, #4 TAB Continued Medications: Aspirin (Aspirin) 81 Mg Chew 81 MG CHEW DAILY, TAB 0 Refills Hydroxyzine Pamoate (Vistaril) 50 Mg Cap 50 MG PO HS, CAP 0 Refills Mirtazapine (Remeron) 45 Mg Tab 45 MG PO HS for Depression Control, #30 TAB 0 Refills Ziprasidone (Geodon) 80 Mg Cap 80 MG PO HS, #60 CAP 0 Refills Good Ram MD Jan 01, 2018 15:18
== END 2018-01-01 17:49 | disposition home health service (06) | DRG 871 ==
LOC: NEPC 15:43 → NEDA 19:01 → N04A 21:36
PROVIDERS: ADMIT Hospitalist; ATTEND Hospitalist
DX: A41.9 Sepsis, unspecified organism (principal); J18.0 Bronchopneumonia, unspecified organism; E87.1 Hypo-osmolality and hyponatremia; J44.1 Chronic obstructive pulmonary disease with (acute) exacerbation; J44.0 Chronic obstructive pulmonary disease with (acute) lower respiratory infection; E87.6 Hypokalemia; R09.02 Hypoxemia; E11.65 Type 2 diabetes mellitus with hyperglycemia; T38.0X5A Adverse effect of glucocorticoids and synthetic analogues, initial encounter; F20.9 Schizophrenia, unspecified; F31.9 Bipolar disorder, unspecified; E07.9 Disorder of thyroid, unspecified; D57.1 Sickle-cell disease without crisis; M19.90 Unspecified osteoarthritis, unspecified site; F17.210 Nicotine dependence, cigarettes, uncomplicated; F10.10 Alcohol abuse, uncomplicated; Z86.73 Personal history of transient ischemic attack (TIA), and cerebral infarction without residual deficits; Z79.84 Long term (current) use of oral hypoglycemic drugs; Z86.19 Personal history of other infectious and parasitic diseases
CPT/HCPCS: 71046; 80048; 80053; 82550; 82552; 82948; 83036; 83605; 83735; 83880; 84484; 85025; 85379; 85610; 85730; 87040; 87804; 93005; 94618; 94640; 94664; 96361; 96365; 96368; 96375; J0456; J0696; J1650; J2920; J2930; J7030; J7050; J7512